=== PATIENT | female | born 1990 | race Caucasian/White ===

== ENCOUNTER 2017-01-08 19:02 | Emergency (ER) | payer OTHER ==
[~2017-01-08] VITALS: Ht 170.2 cm; Wt 74.4 kg
[~2017-01-08 19:02] MED LIST: /MOM400 PO; ACET50TA PO; ANUS2.5C2 TOP; COLA50CA3 PO; IBUP600T26 PO
[2017-01-08] MEDS ORDERED: ONDANSETRON 4 MG ORAL DISINTEGRATING TAB (S0181) PO ONE (21:15)
[2017-01-08] MEDS ORDERED: KETOROLAC 30 MG/ML VIAL (J1885) IM ONE (21:15)
[2017-01-08] MEDS ORDERED: AUGM875T27 PO (21:45)
[2017-01-08] MEDS ORDERED: AUGMENTIN 875 MG TAB PO ONE (21:45)
[2017-01-08 21:48] VITALS: BP 125/75
== END 2017-01-08 22:06 | disposition home or self-care (01) ==
LOC: M ED 20:01
DX: J01.90 Acute sinusitis, unspecified (principal); H65.02 Acute serous otitis media, left ear; R56.9 Unspecified convulsions; J45.909 Unspecified asthma, uncomplicated
CPT/HCPCS: 81025; 87804; 96372; 99283; J1885

== ENCOUNTER → 2017-03-11 | Outpatient (CLI) | payer OTHER ==
[~2017-03-11] MED LIST changes: +AUGM875T27 PO
--- NOTE | 2017-03-11 15:32 | REP ---
Clinical: Left lower quadrant pelvic pain . Technique: Transabdominal pelvic ultrasound followed by transvaginal examination for better evaluation of the endometrium and adnexa with color Doppler evaluation of the ovaries. Findings: Bladder is unremarkable and measures 11.1 x 10.0 x 6.6 cm . Normal anteverted uterus measures 10.2 x 3.2 x 6.0 cm . The endometrial complex measures 2.9 mm thickness. No discrete uterine or endometrial abnormalities are appreciated. Bilateral ovaries are normal in appearance and vascularity without evidence for torsion. Right ovary measures 2.9 x 2.2 x 2.6 cm ; R I = 0.5 a . Left ovary measures 2.3 x 2.4 x 2.7 cm ; R I = 0.65 . No pelvic fluid or adnexal mass lesions . Impression: 1. normal pelvic ultrasound Signed by Vernon Hays MD 03/11/2017 03:19 P
== END ==
LOC: M RAD 14:48
PROVIDERS: ATTEND Nurse Practitioner Women's Health
DX: R10.2 Pelvic and perineal pain (principal)

== ENCOUNTER → 2017-05-14 | Outpatient (REF) | payer OTHER ==
[~2017-05-14] MED LIST changes: -AUGM875T27 PO; +AUGM875T28 PO
== END ==
LOC: M LAB REF 16:41
PROVIDERS: ATTEND Advanced Practice Midwife
DX: O36.80X0 Pregnancy with inconclusive fetal viability, not applicable or unspecified (principal); Z3A.00 Weeks of gestation of pregnancy not specified

== ENCOUNTER → 2017-06-11 | Outpatient (CLI) | payer MEDICAID, OTHER, SELFPAY ==
[~2017-06-11] MED LIST changes: +E-Z-GAS II EFFERVESCENT PACKET (SODIUM BICARB./CITRIC ACID/SIMETHICONE) As Ordered ONE; +E-Z-HD 98% w/w 340GM SUSP BTL As Ordered ONE; +E-Z-PAQUE 96% w/w SUSP 176GM BTL As Ordered ONE
--- NOTE | 2017-06-11 18:07 | REP ---
UPPER GI WITH SMALL BOWEL FOLLOW THROUGH: The procedure was performed by EHSAN Coyle under the direct supervision of Dr. Sher. All imaging was reviewed with him prior to dictation. The patient was able to ingest liquid barium and air in a quantity sufficient to produce a double contrast examination. The oral and pharyngeal stages of deglutition appeared unremarkable. Esophageal transport was prompt and efficient. There was no evidence of esophagitis, stricture, mucosal ring or hiatal hernia. Gastroesophageal reflux was not observed on this examination. The stomach pan were normally outlined. The rugal folds were smooth and regular. There was no gastritis, neoplasm or ulcerative disease. The duodenal pan were normally outlined. There was no duodenitis, pancreatitis, peptic ulcer disease or neoplasm. The visualized portion of the proximal small bowel was normal in course and caliber. Additional liquid barium was given at the end of the examination in order to perform a small bowel follow through. During fluoroscopy gentle palpation of the small bowel loops showed them to be freely movable and pliable. Without evidence of a fixed or angulated loop. The small bowel mucosal pattern was normal in course and caliber. There was no transition to suggest a partial small bowel obstruction. Spot filming of the terminal ileum showed it to be within normal limits. Small bowel transit time was approximately 30 minutes. IMPRESSION: Unremarkable double contrast upper GI examination and small bowel follow through. Fluoroscopy time was 4 minutes and 11 seconds. Reviewed by EHSAN Frederick 06/12/2017 08:14 AEdited and Signed by Eliezer Sher MD 06/12/2017 05:03 P
== END ==
LOC: M RAD 09:42
PROVIDERS: ATTEND Nurse Practitioner Family
DX: K59.00 Constipation, unspecified (principal); R14.0 Abdominal distension (gaseous); R10.9 Unspecified abdominal pain; R12 Heartburn

== ENCOUNTER → 2017-11-13 | Outpatient (REF) | payer OTHER ==
[2017-11-13 17:59] LABS: HEMATOCRIT 43.1 % (36.0-47.0); HEMOGLOBIN 14.2 g/dl (12.0-16.0); MEAN CORPUSCULAR HEMOGLOBIN 29.6 pg (27.0-33.0); MEAN CORPUSCULAR HGB CONC 32.9 g/dl (32.0-36.5); MEAN CORPUSCULAR VOLUME 89.8 fl (80.0-96.0); PLATELET COUNT, AUTOMATED 275 10^3/uL (150-450); RED CELL DISTRIBUTION WIDTH 12.2 % (11.5-14.5); WHITE BLOOD COUNT 10.5 10^3/uL (4.0-10.0)
[2017-11-13 18:45] LABS: HCG, SERUM QUANTITATIVE 4820 MIU/ML
[2017-11-13 21:08] LABS: CHLAMYDIA DNA AMPLIFICATION NEGATIVE (NEGATIVE); GC DNA AMPLIFICATION NEGATIVE (NEGATIVE)
[2017-11-15 14:53] LABS: RUBELLA IgG QUALITATIVE IMMUNE (IMMUNE)
[2017-11-15 15:01] LABS: HBsAg Prenatal NEGATIVE (NEGATIVE)
[2017-11-15 15:21] LABS: HEPATITIS C VIRUS ABY INDEX 0.1 INDEX (<0.8)
[2017-11-15 15:25] LABS: HIV 1&2 SCREEN CENTAUR NEGATIVE (NEGATIVE)
== END ==
LOC: M LAB REF 16:52
DX: Z32.01 Encounter for pregnancy test, result positive (principal); Z36.89 Encounter for other specified antenatal screening

== ENCOUNTER → 2017-12-11 | Outpatient (REF) | payer OTHER | LOC: M LAB REF 13:22 | DX: Z34.81 Encounter for supervision of other normal pregnancy, first trimester (principal) ==

== ENCOUNTER → 2018-01-08 | Outpatient (REF) | payer OTHER | LOC: M LAB REF 13:02 | DX: Z34.82 Encounter for supervision of other normal pregnancy, second trimester (principal); Z3A.00 Weeks of gestation of pregnancy not specified ==

== ENCOUNTER → 2018-04-25 | Outpatient (CLI) | payer OTHER ==
[2018-04-25 12:56] LABS: MEAN CORPUSCULAR HGB CONC 33.3 g/dl (32.0-36.5); PLATELET COUNT, AUTOMATED 316 10^3/uL (150-450); RED BLOOD COUNT 3.45 10^6/uL (4.00-5.40); RED CELL DISTRIBUTION WIDTH 12.1 % (11.5-14.5); WHITE BLOOD COUNT 11.9 10^3/uL (4.0-10.0)
[2018-04-25 13:24] LABS: GLUCOSE CHALLENGE TEST 1 HOUR 145 MG/DL (LESS THAN 140)
== END ==
LOC: M LAB 10:53
DX: Z34.82 Encounter for supervision of other normal pregnancy, second trimester (principal); Z3A.00 Weeks of gestation of pregnancy not specified
CPT/HCPCS: 82950

== ENCOUNTER → 2018-05-01 | Outpatient (CLI) | payer OTHER ==
[2018-05-01 10:00] LABS: GLUCOSE, FASTING 86 MG/DL (LESS THAN 95)
[2018-05-01 10:42] LABS: 1 HR GLUCOSE 156 MG/DL (LESS THAN 180)
[2018-05-01 11:12] LABS: 2 HR GLUCOSE 113 MG/DL (LESS THAN 155)
[2018-05-01 11:58] LABS: 3 HR GLUCOSE 83 MG/DL (LESS THAN 140)
== END ==
LOC: M LAB 08:04
DX: Z34.83 Encounter for supervision of other normal pregnancy, third trimester (principal); Z3A.00 Weeks of gestation of pregnancy not specified
CPT/HCPCS: 82951

== ENCOUNTER → 2018-06-16 | Outpatient (REF) | payer OTHER | LOC: M LAB REF 13:18 | DX: Z34.83 Encounter for supervision of other normal pregnancy, third trimester (principal) ==

== ENCOUNTER 2018-07-03 12:11 | Inpatient (IN) | payer OTHER ==
[2018-07-03 13:25] LABS: HEMATOCRIT 31.8 % (36.0-47.0); HEMOGLOBIN 10.5 g/dl (12.0-15.5); MEAN CORPUSCULAR HEMOGLOBIN 28.2 pg (27.0-33.0); MEAN CORPUSCULAR VOLUME 85.3 fl (80.0-96.0); PLATELET COUNT, AUTOMATED 194 10^3/uL (150-450); RED BLOOD COUNT 3.73 10^6/uL (4.00-5.40); RED CELL DISTRIBUTION WIDTH 13.7 % (11.5-14.5); WHITE BLOOD COUNT 9.7 10^3/uL (4.0-10.0)
[2018-07-03] MEDS: OXYTOCIN DRIP 30 UNITS in APPROPRIATE DILUENT 1 EA IV (14:11)
[2018-07-03] MEDS: LR 1,000 ML IV ×2 (14:12→21:33)
[2018-07-03 14:43] LABS: TOTAL PROTEIN,RANDOM URINE 13.6 MG/DL (0.0-12.0)
[2018-07-03 15:04] LABS: ALT/SGPT 13 U/L (12-78); AST/SGOT 14 U/L (7-37); BILIRUBIN,TOTAL 0.4 MG/DL (0.2-1.0); GLOMERULAR FILTRATION RATE > 60.0 (>60); LDH LACTATE DEHYDROGENASE 177 U/L (84-246); URIC ACID 6.5 MG/DL (2.6-6.0)
[2018-07-03] MEDS ORDERED: FENTANYL 2MCG/ML ROPIVACAINE 0.2% IN 0.9% NACL 200ML IVBAG As Ordered (23:52)
[2018-07-04] MEDS ORDERED: EPIDURAL/PCA KEYS XX (00:12)
[2018-07-04] MEDS ORDERED: REFRIGERATOR IV KEYS XX (00:12)
[2018-07-04] MEDS ORDERED: EPIDURAL COMMENT XX (00:12)
[2018-07-04] MEDS ORDERED: NALOXONE INJ 0.4 MG/1 ML VIAL (J2310) IV (00:12)
[2018-07-04] MEDS ORDERED: LACTATED RINGER'S 1000 ML IV (00:12)
[2018-07-04] MEDS ORDERED: FENTANYL/ROPIVACAINE/NACL BAG 200 ML EPIDURAL (00:12)
[2018-07-04] MEDS ORDERED: ONDANSETRON 4MG/2ML VIAL (J2405) IV (00:12)
[2018-07-04] MEDS ORDERED: ePHEDrine SULFATE 25 MG/5 ML(5MG/ML) SYRINGE IV (00:12)
[2018-07-04] MEDS ORDERED: diphenhydrAMINE INJ 50MG/ML VIAL (J1200) IV (00:12)
[2018-07-04] MEDS: OXYTOCIN DRIP 30 UNITS in APPROPRIATE DILUENT 1 EA IV (04:55)
[2018-07-04] MEDS ORDERED: DOCUSATE SODIUM 100 MG CAP PO (05:00)
[2018-07-04] MEDS ORDERED: DIBUCAINE 1% OINTMENT 30GM TOP (05:00)
[2018-07-04] MEDS ORDERED: METHYLERGONOVINE MALEATE 0.2 MG TAB PO (05:00)
[2018-07-04] MEDS ORDERED: ANUSOL HC CREAM 30GM TOP (05:00)
[2018-07-04] MEDS: IBUPROFEN 800 MG TAB PO ×3 (05:42→21:39)
[2018-07-04 08:16] LABS: HEMATOCRIT 27.7 % (36.0-47.0); HEMOGLOBIN 9.2 g/dl (12.0-15.5); MEAN CORPUSCULAR HGB CONC 33.2 g/dl (32.0-36.5); MEAN CORPUSCULAR VOLUME 84.2 fl (80.0-96.0); PLATELET COUNT, AUTOMATED 173 10^3/uL (150-450); RED BLOOD COUNT 3.29 10^6/uL (4.00-5.40); RED CELL DISTRIBUTION WIDTH 13.6 % (11.5-14.5); WHITE BLOOD COUNT 12.6 10^3/uL (4.0-10.0)
[2018-07-04 08:38] LABS: ALT/SGPT 10 U/L (12-78); AST/SGOT 12 U/L (7-37); BILIRUBIN,TOTAL 0.3 MG/DL (0.2-1.0); GLOMERULAR FILTRATION RATE > 60.0 (>60); LDH LACTATE DEHYDROGENASE 174 U/L (84-246)
[2018-07-04] MEDS: ACETAMINOPHEN 500 MG TAB PO ×2 (08:38→19:16)
[2018-07-04] MEDS: PRENATAL VITAMINS CHEWABLE TABLET PO (08:38)
[2018-07-04] MEDS: MEASLES,MUMPS,RUBELLA VACCINE INJ (MMR-II) (90707) SC (10:11)
[2018-07-04] MEDS: RHOGAM 300 MCG (1500 IU) INJ (J2790) IM (10:11)
[2018-07-05] MEDS: PERCOCET 5MG/325MG TAB PO ×3 (02:00→21:36)
[2018-07-05] MEDS: IBUPROFEN 800 MG TAB PO ×3 (06:25→22:20)
[2018-07-05] MEDS: PRENATAL VITAMINS CHEWABLE TABLET PO (08:13)
[2018-07-05] MEDS: LR 1,000 ML IV (21:30)
[2018-07-05 21:36] LABS: MEAN CORPUSCULAR HEMOGLOBIN 27.9 pg (27.0-33.0); MEAN CORPUSCULAR VOLUME 87.1 fl (80.0-96.0); PLATELET COUNT, AUTOMATED 149 10^3/uL (150-450); RED BLOOD COUNT 2.87 10^6/uL (4.00-5.40); RED CELL DISTRIBUTION WIDTH 13.9 % (11.5-14.5); WHITE BLOOD COUNT 13.1 10^3/uL (4.0-10.0)
[2018-07-05 21:50] LABS: KETONE, URINE AUTO RFX NEGATIVE (NEGATIVE); LEUKOCYTE ESTERASE UR AUTO RFX TRACE (NEGATIVE); MUCUS, URINE RFX SMALL (NEGATIVE); NITRITE, URINE AUTO RFX NEGATIVE (NEGATIVE); RBC, URINE AUTO RFX 5 /HPF (0-3); SPECIFIC GRAVITY UR AUTO RFX 1.006 (1.002-1.035); SQUAM EPITHELIAL CELL UR AURFX 0 /HPF (0-6); WBC, URINE AUTO RFX 13 /HPF (0-3)
[2018-07-05] MEDS ORDERED: ACETAMINOPHEN 500 MG TAB As Ordered (22:18)
[2018-07-05] MEDS: ACETAMINOPHEN 500 MG TAB PO (22:20)
[2018-07-05] MEDS: cefTRIAXone SOD 1 GM in D5W MINI-BAG PLUS 50 ML IV (22:49)
[2018-07-06] MEDS: IBUPROFEN 800 MG TAB PO ×3 (06:02→22:54)
[2018-07-06] MEDS: LR 1,000 ML IV (07:16)
[2018-07-06] MEDS: PRENATAL VITAMINS CHEWABLE TABLET PO (09:04)
[2018-07-06] MEDS: ACETAMINOPHEN 500 MG TAB PO ×3 (09:05→21:07)
[2018-07-06] MEDS: cefTRIAXone SOD 1 GM in D5W MINI-BAG PLUS 50 ML IV (22:53)
[2018-07-07] MEDS: ACETAMINOPHEN 500 MG TAB PO (03:54)
[2018-07-07 06:37] LABS: HEMATOCRIT 22.6 % (36.0-47.0); HEMOGLOBIN 7.2 g/dl (12.0-15.5); MEAN CORPUSCULAR HEMOGLOBIN 28.2 pg (27.0-33.0); MEAN CORPUSCULAR HGB CONC 31.9 g/dl (32.0-36.5); MEAN CORPUSCULAR VOLUME 88.6 fl (80.0-96.0); PLATELET COUNT, AUTOMATED 147 10^3/uL (150-450); RED BLOOD COUNT 2.55 10^6/uL (4.00-5.40); RED CELL DISTRIBUTION WIDTH 14.4 % (11.5-14.5); WHITE BLOOD COUNT 9.6 10^3/uL (4.0-10.0)
[2018-07-07] MEDS: IBUPROFEN 800 MG TAB PO (06:49)
[2018-07-07] MEDS: PRENATAL VITAMINS CHEWABLE TABLET PO (08:08)
== END 2018-07-07 11:30 | disposition home or self-care (01) | DRG 560 ==
LOC: M LDI 12:11 → M OBS 07-04 09:20
PROC: 3E033VJ Introduction of Other Hormone into Peripheral Vein, Percutaneous Approach (ICD-10-PCS; 2018-07-03)
PROC: 10E0XZZ Delivery of Products of Conception, External Approach (ICD-10-PCS; principal; 2018-07-04)
DX: O14.94 Unspecified pre-eclampsia, complicating childbirth (principal); Z37.0 Single live birth; Z3A.38 38 weeks gestation of pregnancy; D64.9 Anemia, unspecified; O99.02 Anemia complicating childbirth; O69.82X0 Labor and delivery complicated by other cord entanglement, without compression, not applicable or unspecified; O86.20 Urinary tract infection following delivery, unspecified

== ENCOUNTER 2018-07-09 22:06 | Emergency (ER) | payer OTHER ==
[2018-07-09 23:06] LABS: BASO % 0.4 % (0.0-1.0); EOS # 0.3 10^3/uL (0.0-0.50); EOS % 3.2 % (0.0-3.0); HEMATOCRIT 24.6 % (36.0-47.0); HEMOGLOBIN 7.9 g/dl (12.0-15.5); IMMATURE GRANULOCYTE % 0.5 % (0-3.0); LYMPH % 24.9 % (24.0-44.0); MEAN CORPUSCULAR HEMOGLOBIN 27.8 pg (27.0-33.0); MEAN CORPUSCULAR HGB CONC 32.1 g/dl (32.0-36.5); MEAN CORPUSCULAR VOLUME 86.6 fl (80.0-96.0); MONO # 0.5 10^3/uL (0.0-0.8); MONO % 6.4 % (0.0-5.0); NEUTROPHILS # 5.1 10^3/uL (1.8-7.7); NEUTROPHILS % 64.6 % (36.0-66.0); PLATELET COUNT, AUTOMATED 279 10^3/uL (150-450); RED BLOOD COUNT 2.84 10^6/uL (4.00-5.40); RED CELL DISTRIBUTION WIDTH 13.8 % (11.5-14.5); WHITE BLOOD COUNT 7.8 10^3/uL (4.0-10.0)
[2018-07-09] MEDS: METOCLOPRAMIDE INJ 10MG/2ML VIAL (J2765) IV (23:30)
[2018-07-09] MEDS: KETOROLAC 30 MG/ML VIAL (J1885) IV (23:30)
[2018-07-09] MEDS: diphenhydrAMINE INJ 50MG/ML VIAL (J1200) IV (23:30)
[2018-07-09] MEDS: NS 1,000 ML IV (23:30)
[2018-07-09 23:38] LABS: ALBUMIN 2.6 GM/DL (3.2-5.2); ALBUMIN/GLOBULIN RATIO 0.84 (1.00-1.93); ALKALINE PHOSPHATASE 95 U/L (45-117); ALT/SGPT 35 U/L (12-78); ANION GAP 11 MEQ/L (8-16); AST/SGOT 27 U/L (7-37); BILIRUBIN,DIRECT < 0.1 MG/DL (0.0-0.2); BILIRUBIN,TOTAL 0.2 MG/DL (0.2-1.0); BLOOD UREA NITROGEN 17 MG/DL (7-18); CALCIUM LEVEL 8.1 MG/DL (8.5-10.1); CARBON DIOXIDE LEVEL 23 MEQ/L (21-32); CHLORIDE LEVEL 111 MEQ/L (98-107); CREATININE FOR GFR 0.88 MG/DL (0.55-1.30); GLOMERULAR FILTRATION RATE > 60.0 (>60); GLUCOSE, FASTING 98 MG/DL (70-100); POTASSIUM SERUM 3.7 MEQ/L (3.5-5.1); SODIUM LEVEL 145 MEQ/L (136-145); TOTAL PROTEIN 5.7 GM/DL (6.4-8.2)
[2018-07-10 00:35] LABS: KETONE, URINE AUTO RFX NEGATIVE (NEGATIVE); LEUKOCYTE ESTERASE UR AUTO RFX NEGATIVE (NEGATIVE); NITRITE, URINE AUTO RFX NEGATIVE (NEGATIVE); RBC, URINE AUTO RFX 1 /HPF (0-3); SPECIFIC GRAVITY UR AUTO RFX 1.006 (1.002-1.035); SQUAM EPITHELIAL CELL UR AURFX 0 /HPF (0-6); WBC, URINE AUTO RFX 2 /HPF (0-3)
[2018-07-10 02:34] LABS: LDH LACTATE DEHYDROGENASE 244 U/L (84-246)
== END 2018-07-10 03:05 | disposition home or self-care (01) ==
LOC: M ED 07-10 03:05
DX: R51 Headache (principal); Z72.0 Tobacco use; Z79.899 Other long term (current) drug therapy
CPT/HCPCS: J1200

== ENCOUNTER 2018-07-11 14:05 | Inpatient (IN) | payer OTHER ==
[2018-07-11 15:38] LABS: BASO % 0.5 % (0.0-1.0); EOS # 0.2 10^3/uL (0.0-0.50); EOS % 2.7 % (0.0-3.0); HEMATOCRIT 28.5 % (36.0-47.0); HEMOGLOBIN 8.9 g/dl (12.0-15.5); IMMATURE GRANULOCYTE % 2.5 % (0-3.0); LYMPH # 2.1 10^3/uL (1.5-6.5); LYMPH % 27.4 % (24.0-44.0); MEAN CORPUSCULAR HEMOGLOBIN 27.4 pg (27.0-33.0); MEAN CORPUSCULAR HGB CONC 31.2 g/dl (32.0-36.5); MEAN CORPUSCULAR VOLUME 87.7 fl (80.0-96.0); MONO # 0.4 10^3/uL (0.0-0.8); MONO % 5.4 % (0.0-5.0); NEUTROPHILS # 4.6 10^3/uL (1.8-7.7); NEUTROPHILS % 61.5 % (36.0-66.0); PLATELET COUNT, AUTOMATED 332 10^3/uL (150-450); RED BLOOD COUNT 3.25 10^6/uL (4.00-5.40); RED CELL DISTRIBUTION WIDTH 13.7 % (11.5-14.5); WHITE BLOOD COUNT 7.5 10^3/uL (4.0-10.0)
[2018-07-11 15:42] LABS: PROTHROMBIN TIME 13.3 SECONDS (12.1-14.4)
[2018-07-11 15:43] LABS: PARTIAL THROMBOPLASTIN TIME 31.2 SECONDS (25.4-37.6)
[2018-07-11 15:50] LABS: KETONE, URINE AUTO RFX NEGATIVE (NEGATIVE); LEUKOCYTE ESTERASE UR AUTO RFX 1+ (NEGATIVE); MUCUS, URINE RFX SMALL (NEGATIVE); NITRITE, URINE AUTO RFX NEGATIVE (NEGATIVE); RBC, URINE AUTO RFX 3 /HPF (0-3); SPECIFIC GRAVITY UR AUTO RFX 1.006 (1.002-1.035); SQUAM EPITHELIAL CELL UR AURFX 3 /HPF (0-6); WBC, URINE AUTO RFX 6 /HPF (0-3)
[2018-07-11 15:51] LABS: ALBUMIN 2.9 GM/DL (3.2-5.2); ALBUMIN/GLOBULIN RATIO 0.76 (1.00-1.93); ALKALINE PHOSPHATASE 100 U/L (45-117); ALT/SGPT 48 U/L (12-78); ANION GAP 7 MEQ/L (8-16); AST/SGOT 26 U/L (7-37); BILIRUBIN,DIRECT < 0.1 MG/DL (0.0-0.2); BILIRUBIN,TOTAL 0.2 MG/DL (0.2-1.0); BLOOD UREA NITROGEN 14 MG/DL (7-18); C REACTIVE PROTEIN QUANTITATIV 1.88 MG/DL (0.00-0.30); CALCIUM LEVEL 8.5 MG/DL (8.5-10.1); CARBON DIOXIDE LEVEL 24 MEQ/L (21-32); CHLORIDE LEVEL 110 MEQ/L (98-107); CREATININE FOR GFR 0.92 MG/DL (0.55-1.30); GLOMERULAR FILTRATION RATE > 60.0 (>60); GLUCOSE, FASTING 86 MG/DL (70-100); POTASSIUM SERUM 3.9 MEQ/L (3.5-5.1); SODIUM LEVEL 141 MEQ/L (136-145); TOTAL PROTEIN 6.7 GM/DL (6.4-8.2)
[2018-07-11 16:07] LABS: ERYTHROCYTE SEDIMENTATION RATE 61 mm/hr (0-20)
[2018-07-11] MEDS ORDERED: ISOVUE-370 76% 100ML VIAL (Q9967) As Ordered (16:18)
[2018-07-11 16:27] LABS: LACTIC ACID SEPSIS PROTOCOL 0.8 MMOL/L (0.4-2.0)
[2018-07-11 16:37] LABS: CPK CREATINE PHOSPHOKINASE 81 U/L (26-192); MB/CK RELATIVE INDEX 1.36 (< OR =4); TROPONIN I 0.02 NG/ML (< 0.10)
[2018-07-11] MEDS: ENALAPRIL MALEATE 5 MG TAB PO (20:15)
[2018-07-11 20:50] LABS: NT-PRO BNP 963 PG/ML (<125)
[2018-07-11] MEDS: FUROSEMIDE 20 MG/2 ML VIAL (J1940) IV (22:06)
[2018-07-11] MEDS: **hydrALAZINE HCL** 25 MG TAB PO (22:07)
[2018-07-12 00:01] LABS: TROPONIN I < 0.02 NG/ML (< 0.10)
[2018-07-12] MEDS: **hydrALAZINE HCL** 25 MG TAB PO (06:00)
[2018-07-12 06:30] LABS: TROPONIN I < 0.02 NG/ML (< 0.10)
[2018-07-12 08:55] LABS: BASO % 0.4 % (0.0-1.0); EOS # 0.2 10^3/uL (0.0-0.50); EOS % 2.8 % (0.0-3.0); HEMATOCRIT 27.7 % (36.0-47.0); HEMOGLOBIN 8.9 g/dl (12.0-15.5); IMMATURE GRANULOCYTE % 1.4 % (0-3.0); LYMPH # 2.1 10^3/uL (1.5-6.5); LYMPH % 27.4 % (24.0-44.0); MEAN CORPUSCULAR HEMOGLOBIN 27.6 pg (27.0-33.0); MEAN CORPUSCULAR HGB CONC 32.1 g/dl (32.0-36.5); MEAN CORPUSCULAR VOLUME 85.8 fl (80.0-96.0); MONO # 0.5 10^3/uL (0.0-0.8); MONO % 6.3 % (0.0-5.0); NEUTROPHILS # 4.8 10^3/uL (1.8-7.7); NEUTROPHILS % 61.7 % (36.0-66.0); PLATELET COUNT, AUTOMATED 374 10^3/uL (150-450); RED BLOOD COUNT 3.23 10^6/uL (4.00-5.40); RED CELL DISTRIBUTION WIDTH 13.6 % (11.5-14.5); WHITE BLOOD COUNT 7.8 10^3/uL (4.0-10.0)
[2018-07-12] MEDS ORDERED: CEPHALEXIN 250 MG CAP PO (09:00)
[2018-07-12 09:14] LABS: ALBUMIN 2.7 GM/DL (3.2-5.2); ALBUMIN/GLOBULIN RATIO 0.73 (1.00-1.93); ALKALINE PHOSPHATASE 99 U/L (45-117); ALT/SGPT 42 U/L (12-78); ANION GAP 9 MEQ/L (8-16); AST/SGOT 23 U/L (7-37); BILIRUBIN,TOTAL 0.2 MG/DL (0.2-1.0); BLOOD UREA NITROGEN 15 MG/DL (7-18); CALCIUM LEVEL 8.2 MG/DL (8.5-10.1); CARBON DIOXIDE LEVEL 27 MEQ/L (21-32); CHLORIDE LEVEL 107 MEQ/L (98-107); GLOMERULAR FILTRATION RATE > 60.0 (>60); GLUCOSE, FASTING 80 MG/DL (70-100); MAGNESIUM LEVEL 2.1 MG/DL (1.8-2.4); POTASSIUM SERUM 3.7 MEQ/L (3.5-5.1); SODIUM LEVEL 143 MEQ/L (136-145); TOTAL PROTEIN 6.4 GM/DL (6.4-8.2)
[2018-07-12] MEDS: **hydrALAZINE** 50 MG TAB PO ×2 (14:21→22:35)
[2018-07-12] MEDS: hydrALAZINE INJ 20 MG/ML VIAL IV (19:40)
[2018-07-12] MEDS: ACETAMINOPHEN TAB 650MG DOSE (2X325MG) PO (19:43)
[2018-07-13] MEDS: **hydrALAZINE** 50 MG TAB PO ×3 (05:37→21:40)
[2018-07-13 05:38] LABS: BASO % 0.4 % (0.0-1.0); EOS # 0.2 10^3/uL (0.0-0.50); EOS % 3.3 % (0.0-3.0); HEMATOCRIT 30.7 % (36.0-47.0); IMMATURE GRANULOCYTE % 0.9 % (0-3.0); MEAN CORPUSCULAR HEMOGLOBIN 27.7 pg (27.0-33.0); MEAN CORPUSCULAR HGB CONC 32.6 g/dl (32.0-36.5); MONO # 0.5 10^3/uL (0.0-0.8); MONO % 7.9 % (0.0-5.0); NEUTROPHILS # 3.9 10^3/uL (1.8-7.7); NEUTROPHILS % 58.5 % (36.0-66.0); PLATELET COUNT, AUTOMATED 440 10^3/uL (150-450); RED BLOOD COUNT 3.61 10^6/uL (4.00-5.40); RED CELL DISTRIBUTION WIDTH 13.4 % (11.5-14.5); WHITE BLOOD COUNT 6.7 10^3/uL (4.0-10.0)
[2018-07-13 06:29] LABS: ALBUMIN 2.9 GM/DL (3.2-5.2); ALBUMIN/GLOBULIN RATIO 0.85 (1.00-1.93); ALKALINE PHOSPHATASE 103 U/L (45-117); ALT/SGPT 37 U/L (12-78); ANION GAP 9 MEQ/L (8-16); AST/SGOT 17 U/L (7-37); BILIRUBIN,TOTAL 0.3 MG/DL (0.2-1.0); BLOOD UREA NITROGEN 16 MG/DL (7-18); CALCIUM LEVEL 8.4 MG/DL (8.5-10.1); CARBON DIOXIDE LEVEL 25 MEQ/L (21-32); CHLORIDE LEVEL 109 MEQ/L (98-107); CREATININE FOR GFR 1.11 MG/DL (0.55-1.30); GLOMERULAR FILTRATION RATE > 60.0 (>60); GLUCOSE, FASTING 96 MG/DL (70-100); MAGNESIUM LEVEL 2.4 MG/DL (1.8-2.4); POTASSIUM SERUM 3.7 MEQ/L (3.5-5.1); SODIUM LEVEL 143 MEQ/L (136-145); TOTAL PROTEIN 6.3 GM/DL (6.4-8.2)
[2018-07-13] MEDS: ACETAMINOPHEN TAB 650MG DOSE (2X325MG) PO ×2 (08:54→17:41)
[2018-07-14 05:30] LABS: BASO % 0.5 % (0.0-1.0); EOS # 0.3 10^3/uL (0.0-0.50); EOS % 4.2 % (0.0-3.0); HEMATOCRIT 33.8 % (36.0-47.0); HEMOGLOBIN 10.4 g/dl (12.0-15.5); IMMATURE GRANULOCYTE % 0.9 % (0-3.0); LYMPH # 2.4 10^3/uL (1.5-6.5); LYMPH % 30.9 % (24.0-44.0); MEAN CORPUSCULAR HEMOGLOBIN 27.2 pg (27.0-33.0); MEAN CORPUSCULAR HGB CONC 30.8 g/dl (32.0-36.5); MEAN CORPUSCULAR VOLUME 88.3 fl (80.0-96.0); MONO # 0.5 10^3/uL (0.0-0.8); MONO % 5.7 % (0.0-5.0); NEUTROPHILS # 4.5 10^3/uL (1.8-7.7); NEUTROPHILS % 57.8 % (36.0-66.0); PLATELET COUNT, AUTOMATED 427 10^3/uL (150-450); RED BLOOD COUNT 3.83 10^6/uL (4.00-5.40); RED CELL DISTRIBUTION WIDTH 13.8 % (11.5-14.5); WHITE BLOOD COUNT 7.8 10^3/uL (4.0-10.0)
[2018-07-14 05:50] LABS: ALBUMIN 2.9 GM/DL (3.2-5.2); ALBUMIN/GLOBULIN RATIO 0.73 (1.00-1.93); ALKALINE PHOSPHATASE 92 U/L (45-117); ALT/SGPT 30 U/L (12-78); ANION GAP 11 MEQ/L (8-16); AST/SGOT 15 U/L (7-37); BILIRUBIN,TOTAL 0.2 MG/DL (0.2-1.0); BLOOD UREA NITROGEN 15 MG/DL (7-18); CALCIUM LEVEL 8.6 MG/DL (8.5-10.1); CARBON DIOXIDE LEVEL 25 MEQ/L (21-32); CHLORIDE LEVEL 109 MEQ/L (98-107); CREATININE FOR GFR 1.08 MG/DL (0.55-1.30); GLOMERULAR FILTRATION RATE > 60.0 (>60); GLUCOSE, FASTING 79 MG/DL (70-100); MAGNESIUM LEVEL 2.3 MG/DL (1.8-2.4); POTASSIUM SERUM 3.9 MEQ/L (3.5-5.1); SODIUM LEVEL 145 MEQ/L (136-145); TOTAL PROTEIN 6.9 GM/DL (6.4-8.2)
[2018-07-14] MEDS: **hydrALAZINE** 50 MG TAB PO ×2 (06:00→13:59)
[2018-07-14] MEDS ORDERED: SLF 3 ML SYR IV (11:00)
[2018-07-14] MEDS: SLF 3 ML SYR IV (13:59)
== END 2018-07-14 17:00 | disposition home or self-care (01) | DRG 561 ==
LOC: M ED 14:05 → M ED INP 19:00 → M PCU 21:37
DX: O14.15 Severe pre-eclampsia, complicating the puerperium (principal); R01.1 Cardiac murmur, unspecified

== ENCOUNTER → 2020-04-21 | Outpatient (CLI) | payer OTHER ==
[~2020-04-21] MED LIST changes: -/MOM400 PO; -ACET50TA PO; +ADDE1TAB14 PO; +AMLO2.5C4 PO; +CEPH250T; +CEPH250T PO; -E-Z-GAS II EFFERVESCENT PACKET (SODIUM BICARB./CITRIC ACID/SIMETHICONE) As Ordered ONE; -E-Z-HD 98% w/w 340GM SUSP BTL As Ordered ONE; -E-Z-PAQUE 96% w/w SUSP 176GM BTL As Ordered ONE; +FERR325T3 PO; +FERR32TA; +IBUP80TA PO; +KEFL250C11 PO; +MAPA500T17 PO; +MAPA500T2 PO; +MILK10SU PO; +PERCOCET PO; +PHEN-501 PO; +PRENTAB9 PO; +TYLE325T5 PO
--- NOTE | 2020-04-21 11:37 | REP ---
URINARY TRACT SONOGRAPHY: HISTORY: Flank pain. Acute gross hematuria. FINDINGS: Scanning through the level urinary bladder shows no abnormality. Emptying ureteral jets are confirmed emanating from both ureters on color Doppler interrogation of bladder lumen. There is no evidence of hydronephrosis on either side. Renal cortical echogenicity pattern is normal and renal contours are smooth. Renal pyramids are quite hyperechoic however without shadowing. Question medullary sponge kidney configuration versus dehydration. There is a punctate 3 mm echogenic focus in the upper pole cortex on the left question calcification. Right renal dimensions are 9.8 x 5.1 x 4.0 cm. Left kidney measures 10.8 x 5.9 x 5.9 cm. IMPRESSION: Echogenic renal medullary tissue question medullary sponge kidney. Small focal calcification left upper pole. No hydronephrosis mass or cyst. Otherwise negative. Electronically Signed by Dereje Cunningham MD 04/21/2020 11:50 A
== END ==
LOC: M RAD 10:52
PROVIDERS: ATTEND Advanced Practice Midwife
DX: R10.9 Unspecified abdominal pain (principal); R31.0 Gross hematuria; N28.89 Other specified disorders of kidney and ureter

== ENCOUNTER → 2020-08-19 | Outpatient (REF) | payer OTHER ==
[~2020-08-19] MED LIST changes: -PERCOCET PO; -PHEN-501 PO
== END ==
LOC: M PLALAB 15:08
PROVIDERS: ATTEND Obstetrics & Gynecology
DX: N93.9 Abnormal uterine and vaginal bleeding, unspecified (principal)

== ENCOUNTER → 2020-08-28 | Outpatient (CLI) | payer OTHER ==
[~2020-08-28] MED LIST changes: +PERCOCET PO; +PHEN-501 PO
== END ==
LOC: M LABSMTC 09:23
PROVIDERS: ATTEND Anesthesiology
DX: Z01.812 Encounter for preprocedural laboratory examination (principal); Z20.828 Contact with and (suspected) exposure to other viral communicable diseases
CPT/HCPCS: C9803; U0003

== ENCOUNTER → 2020-08-30 | Outpatient (CLI) | payer OTHER ==
--- NOTE | 2020-08-30 09:47 | REP ---
INDICATION: N93.9 ABNORMAL UTERINE BLEEDING. COMPARISON: Comparison pelvic sonography July 11, 2018.. TECHNIQUE: Transabdominal and transvaginal scanning were performed. FINDINGS: Uterine dimensions are normal at 8.9 x 4.2 x 6.3 cm. Endometrial echo is 0.8 cm thick and centrally placed. No free fluid is seen in the cul-de-sac. Visualized bladder pan are smooth. An IUD is seen in good position centrally in the endometrial canal. The right ovary has dimensions of 3.3 x 2.2 x 2.4 cm. It's Doppler flow is normal with a resistive index of 0.43. The left ovary dimensions are normal as well at 3.7 x 2.2 x 2.7 cm. It's Doppler flow was normal with resistive index of 0.43. IMPRESSION: Normal pelvic sonography. IUD in place. No morphologic abnormality. <Electronically signed by Terrence Cunningham > 08/30/20 0914
== END ==
LOC: M WHC 08:34
PROVIDERS: ATTEND Obstetrics & Gynecology
DX: N93.9 Abnormal uterine and vaginal bleeding, unspecified (principal); Z97.5 Presence of (intrauterine) contraceptive device

== ENCOUNTER 2020-09-02 06:02 | Day surgery (SDC) | payer OTHER ==
[2020-09-02] VITALS (8 sets, daily range): BP systolic 101–118; BP diastolic 49–63
[~2020-09-02] VITALS: Ht 170.2 cm; Wt 79.0 kg
[~2020-09-02 06:02] MED LIST changes: -PERCOCET PO; -PHEN-501 PO
[2020-09-02 06:38] LABS: HEMATOCRIT 43.9 % (36.0-47.0); MEAN CORPUSCULAR HEMOGLOBIN 28.9 pg (27.0-33.0); MEAN CORPUSCULAR HGB CONC 31.9 g/dl (32.0-36.5); MEAN CORPUSCULAR VOLUME 90.7 fl (80.0-96.0); PLATELET COUNT, AUTOMATED 237 10^3/uL (150-450); RED BLOOD COUNT 4.84 10^6/uL (4.00-5.40); WHITE BLOOD COUNT 8.8 10^3/uL (4.0-10.0)
[2020-09-02] MEDS ORDERED: PHEN-501 PO (06:38)
[2020-09-02] MEDS ORDERED: ceFAZolin SOD 2 GM in IV 1 EA IV ONE (07:00)
[2020-09-02] MEDS ORDERED: LR 1,000 ML IV ONE (07:00)
[2020-09-02] MEDS ORDERED: METHYLENE BLUE 0.5% (5MG/ML) 10 ML AMP (PROVAYBLUE) As Ordered ONE (07:14)
[2020-09-02] MEDS ORDERED: BUPIVACAINE HCL 0.25% 30ML VIAL As Ordered ONE (07:14)
[2020-09-02] MEDS ORDERED: fentaNYL 100 MCG/2 ML INJECTION (J3010) As Ordered ONE ×2 (07:16→11:02)
[2020-09-02] MEDS ORDERED: MIDAZOLAM INJ 2MG/2ML VIAL (J2250 PER 1MG) As Ordered ONE (07:16)
[2020-09-02] MEDS ORDERED: HYDROmorphone HCL 2 MG/ML 1ML VIAL (J1170) As Ordered ONE (07:16)
[2020-09-02] MEDS ORDERED: ONDANSETRON 4MG/2ML VIAL As Ordered ONE (07:19)
[2020-09-02] MEDS ORDERED: KETOROLAC 60MG 2ML VIAL As Ordered ONE (07:19)
[2020-09-02] MEDS ORDERED: propofoL 200 MG/20 ML VIAL As Ordered ONE (07:19)
[2020-09-02] MEDS ORDERED: LIDOCAINE 2% 100MG/5ML SDV (FOR ANES.) As Ordered ONE (07:19)
[2020-09-02] MEDS ORDERED: ROCURONIUM BROMIDE 50 MG/5 ML VIAL As Ordered ONE ×2 (07:19→08:22)
[2020-09-02] MEDS ORDERED: dexameTHASONE 4 MG/ML 1ML VIAL (J1100 PER 1MG) As Ordered ONE (07:21)
[2020-09-02 07:25] LABS: FREE T4 1.07 NG/DL (0.76-1.46); THYROID STIMULATING HORMONE 2.73 uIU/ML (0.358-3.740)
[2020-09-02] MEDS ORDERED: SUGAMMADEX SODIUM 500 MG/5 ML VIAL (BRIDION) As Ordered ONE (08:08)
[2020-09-02] MEDS ORDERED: ACETAMINOPHEN 1000MG 100ML IV BTL (OFIRMEV) (J0131 PER 10MG) As Ordered ONE (08:08)
[2020-09-02] MEDS ORDERED: GLYCOPYRROLATE INJ 0.2 MG/ML 2 ML VIAL As Ordered ONE (08:14)
[2020-09-02] MEDS ORDERED: HEPARIN SOD (PORCINE) 5000UNITS/ML 1ML VIAL/SYRINGE As Ordered ONE (09:28)
[2020-09-02] MEDS ORDERED: ISOVUE-300 61% 50ML VIAL As Ordered ONE (09:28)
--- NOTE | 2020-09-02 11:06 | ROOPDOC ---
[facility] Report Of Operation Report of Operation DATE OF PROCEDURE: 09/02/20 PREPROCEDURE DIAGNOSES: Possible retroperitoneal vascular injury after Veress needle placement POSTPROCEDURE DIAGNOSES: Same PROCEDURE: 1. Ultrasound-guided access left common femoral artery 2. Aortoiliofemoral arteriogram with selection views left and right iliac arteries 3. Mynx closure left common femoral artery SURGEON: Edna Carreno MD ANESTHESIA: Gen. anesthesia INDICATION FOR PROCEDURE: We were consulted intraoperative during a robotic case with Dr. Newell for possible arterial injury with varus needle placement. After varus needle, there was noted to be a small retroperitoneal hematoma, and this remained stable during the case. The patient did not require blood transfusion, did not have unstable vitals, and the hematoma did not seem to be expanding during the case. We discussed that it was likely safe to finish the case, and that directly following I would do an arteriogram to see if there was any extravasation or ongoing bleeding. However, I was hopeful that whenever small amount of bleeding occurred attempt noted in the retroperitoneum as the hematoma was small and not expanding. This was an urgent procedure and the patient was under anesthesia, informed consent was not obtained. INTERPRETATION: 1. The distal aorta and proximal iliac segments are widely patent with no extravasation noted. The lumbar arteries at this level were widely patent. No extravasation was noted. There is good flow into both hypogastric arteries with widely patent external iliac arteries and intact proximal runoff through the femoral vessels bilaterally. 2. Selection of the right hypogastric artery did not reveal any arterial injury or extravasation. 3. Selection of the left distal common iliac artery showed widely patent vessels with excellent flow through the hypogastric artery and its branches with no extravasation or sign of arterial injury. REPORT OF OPERATION: Following the robotic case with Dr. Newell, the patient was transferred to a Tiburcio table and her bilateral groins were prepped and draped in a sterile fashion. A timeout was performed. Ultrasound was used to guide access to the left common femoral artery with a microneedle. Wire was passed through this access and the needle was removed. A 4 Greenlandic sheath was placed and flushed with saline. A Glidewire an Omni flushed catheter were advanced into the distal aorta. An aortoiliofemoral arteriogram was performed. Please interpretation above. We then went up and over the bifurcation with a Glidewire and the flushing catheter and selection of the right hypogastric artery was performed with arteriograms, please interpretation above. We then retracted her catheter over the wire into the left iliac system at the origin of the hypogastric additional arteriograms were performed, please interpretation above. No arterial injury or extravasation was noted on arteriograms. We then exchange the sheath over the wire for 5 Greenlandic sheath and a Mynx closure device was deployed with good hemostasis. Pressure was held for 10 minutes and sterile dressings were applied. The patient was then allowed to awaken from anesthesia and taken to recovery in stable condition. She tolerated the procedure well. ESTIMATED BLOOD LOSS: Approximately 2 mL. COMPLICATIONS: none. PLAN: Patient will be on 4 hours bedrest postprocedure with left leg straight. Monitor left groin for hematoma postprocedure. After 4 hours, light activity until morning and then resume normal activity, but no lifting greater than 10 pounds and no strenuous exercise for 48 hours postprocedure. Okay to remove dressing and shower in the morning. Okay to leave access site open to air in the morning. We appreciate the opportunity to participate in the care of this patient. EDNA CARRENO MD Sep 02, 2020 11:06
[2020-09-02] MEDS ORDERED: fentaNYL 100 MCG/2 ML INJECTION (J3010) IV PRN (11:30)
[2020-09-02] MEDS ORDERED: ONDANSETRON 4MG/2ML VIAL IV PRN (11:30)
[2020-09-02] MEDS ORDERED: PERCOCET 5MG/325MG TAB PO PRN (11:30)
[2020-09-02] MEDS ORDERED: LR 1,000 ML IV SCH (11:30)
[2020-09-02] MEDS ORDERED: oxyCODONE 5MG TAB PO PRN (11:30)
[2020-09-02 11:43] LABS: HEMATOCRIT 40.4 % (36.0-47.0); MEAN CORPUSCULAR HEMOGLOBIN 29.2 pg (27.0-33.0); MEAN CORPUSCULAR HGB CONC 32.2 g/dl (32.0-36.5); MEAN CORPUSCULAR VOLUME 90.8 fl (80.0-96.0); PLATELET COUNT, AUTOMATED 215 10^3/uL (150-450); RED BLOOD COUNT 4.45 10^6/uL (4.00-5.40); WHITE BLOOD COUNT 17.8 10^3/uL (4.0-10.0)
[2020-09-02] MEDS: LR 1,000 ML IV SCH ×2 (12:48→22:05)
[2020-09-02] MEDS: MORPHINE 4 MG/ML 1ML VIAL/SYRINGE (J2270) IV PRN ×2 (15:14→22:09)
[2020-09-02] MEDS: PERCOCET 5MG/325MG TAB PO PRN ×2 (16:55→21:04)
[2020-09-02 17:14] LABS: HEMATOCRIT 39.1 % (36.0-47.0); HEMOGLOBIN 12.8 g/dl (12.0-15.5); MEAN CORPUSCULAR HEMOGLOBIN 29.4 pg (27.0-33.0); MEAN CORPUSCULAR HGB CONC 32.7 g/dl (32.0-36.5); MEAN CORPUSCULAR VOLUME 89.9 fl (80.0-96.0); PLATELET COUNT, AUTOMATED 219 10^3/uL (150-450); RED BLOOD COUNT 4.35 10^6/uL (4.00-5.40); WHITE BLOOD COUNT 15.1 10^3/uL (4.0-10.0)
--- NOTE | 2020-09-02 18:04 | ROOPDOC ---
[facility] Report Of Operation Report of Operation DATE OF PROCEDURE: 09/02/20 PREPROCEDURE DIAGNOSES: 1. Abnormal uterine bleeding. POSTPROCEDURE DIAGNOSES: 1. Abnormal uterine bleeding. PROCEDURES PERFORMED: 1. Robotic-assisted laparoscopic hysterectomy. 2. Bilateral salpingectomy. 3. Cystoscopy. SURGEON: Kasey Newell MD STOCK HOUSE WORKER: ZEENAT Thompson ANESTHESIA: General endotracheal anesthesia. ESTIMATED BLOOD LOSS: 50 mL. INTRAVENOUS FLUIDS: 1000mL lactated Ringer solution. URINE OUTPUT: 100mL. PREPROCEDURE ANTIBIOTICS: 2g Ancef OPERATIVE FINDINGS: The patient with normal-appearing bilateral adnexa and uterus. Veress needle puncturing the retroperitoneal. COMPLICATION: Possible retroperitoneal vascular injury with the Veress needle placement. Dr. Naomie Reddy, vascular surgeon was consulted intraoperatively. She performed ultrasound-guided access left common femoral arteryaortoiliofemoral arteriogram with selection views left and right iliac arteries. No arterial injury or extravasation was noted. Please see operative note for further details. CYSTOSCOPIC FINDING: Normal bladder mucosa, no foreign objects. Bilateral ureteral jets were observed. SPECIMEN: Uterus, cervix, bilateral fallopian tubes DESCRIPTION OF PROCEDURE: After informed consent was obtained and written consent was reviewed, the patient was brought to the operating room, where general endotracheal anesthesia was obtained. She was then placed in lithotomy position, was prepped and draped in a normal sterile fashion. A time-out in the operating room was then performed, identifying the patient, procedure to be performed, as well as drug allergies. A speculum was then placed, revealing the cervix. The anterior and posterior aspects of the cervix were stitched with a 0 Vicryl. The uterus was then sounded to 9cm. A large [employer] uterine manipulator was then advanced through the cervical os for means to manipulate the uterus. The cervical cap was applied over the cervix, as well as the vaginal sleeve applied into the vagina. The speculum was removed from the patients vagina. A Wray catheter was then placed and set to gravity. Gloves were changed, and attention was turned to the patients abdomen, where a Veress needle was placed through the umbilicus. A pneumoperitoneum was then obtained with CO2 gas. The supraumbilical area was infused with 0.25% Marcaine. An incision was made in this area, and a 8 mm trocar and sleeve was advanced through this incision. The laparoscope was then replaced, revealing intra-abdominal placement. Three additional port sites were placed, two to the left side of the patient's abdomen and one to the right. These areas was infused with 0.25% Marcaine. Each one of these areas, incisions were made, and 8 mm trocars and sleeves advanced through each one of these incisions under direct visualization. Next, the da Cj was then docked, utilizing a camera arm and two operative arms. The patient's abdomen was then surveyed with the above-noted finding. The Veress needle puncture in the retroperitoneal area was identified at this time. Consult was initiated. Patient remained stable with normal vital signs. No active bleeding identify no enlargement of small hematoma. After co nsultation, Dr. Kearney recommended completion of hysterectomy. She will follow with her procedures after. Bilateral salpingectomies were then performed. The fallopian tubes' mesosalpinx was cauterized and ligated with hemostasis noted. Next, the uteroovarian ligaments bilateral were cauterized and ligated with good hemostasis noted. The round ligaments bilaterally were cauterized and ligated with good hemostasis noted. The anterior and posterior aspects of broad ligaments were . The anterior leaf of the broad ligament was cauterized and ligated and dissected along the bladder, creating a bladder flap. The remainder of the broad and cardinal ligaments were then cauterized and ligated with good hemostasis noted. The uterine arteries were skeletonized bilaterally and were cauterized and transected with good hemostasis noted. Anterior and posterior colpotomies were made using monopolar scissors. The uterus was then brought out through the vaginal incision. The surgical sites were inspected and noted to be hemostatic. The vaginal cuff was then closed using 2-0 V-Loc system in a running fashion. Yaquelin was then applied over the surgical field. The pneumoperitoneum was then released. Next, the cystoscopy was then performed. Utilizing a 70-degree cystoscope, it was advanced transurethrally through the bladder. The bladder was surveyed, showing normal bladder mucosa, no foreign bodies. The bilateral ureteral jets were observed. The cystoscope was then removed. The bladder was then drained. Gloves were changed. Attention was then turned to the patients abdomen, where all four port sites were closed with 4-0 Monocryl and dressed with Dermabond. Dr. Carreno then treated with her procedures. Please see operative note for further details. The completion of her procedure, he shouldn't was awakened from general anest hesia and taken to recovery in stable condition. Counts were correct. Coral Landry, my operating room surgical technologist, played a central role in the operation. She assisted with port placement, tissue retraction and identification, as well as wound closure. KASEY NEWELL MD. Sep 02, 2020 18:04
[2020-09-02 21:13] LABS: HEMATOCRIT 38.8 % (36.0-47.0); HEMOGLOBIN 12.9 g/dl (12.0-15.5); MEAN CORPUSCULAR HEMOGLOBIN 29.9 pg (27.0-33.0); MEAN CORPUSCULAR HGB CONC 33.2 g/dl (32.0-36.5); MEAN CORPUSCULAR VOLUME 89.8 fl (80.0-96.0); PLATELET COUNT, AUTOMATED 220 10^3/uL (150-450); RED BLOOD COUNT 4.32 10^6/uL (4.00-5.40); WHITE BLOOD COUNT 15.3 10^3/uL (4.0-10.0)
[2020-09-03] VITALS (8 sets, daily range): BP systolic 96–121; BP diastolic 50–65
[2020-09-03] MEDS: LR 1,000 ML IV SCH ×2 (05:02→08:28)
[2020-09-03] MEDS: PERCOCET 5MG/325MG TAB PO PRN (05:03)
[2020-09-03] MEDS: MORPHINE 4 MG/ML 1ML VIAL/SYRINGE (J2270) IV PRN (08:33)
[2020-09-03] MEDS ORDERED: ONDANSETRON 4MG/2ML VIAL IV PRN (11:30)
[2020-09-03 11:40] LABS: HEMATOCRIT 35.2 % (36.0-47.0); HEMOGLOBIN 11.1 g/dl (12.0-15.5); MEAN CORPUSCULAR HEMOGLOBIN 28.9 pg (27.0-33.0); MEAN CORPUSCULAR HGB CONC 31.5 g/dl (32.0-36.5); MEAN CORPUSCULAR VOLUME 91.7 fl (80.0-96.0); PLATELET COUNT, AUTOMATED 202 10^3/uL (150-450); RED BLOOD COUNT 3.84 10^6/uL (4.00-5.40); WHITE BLOOD COUNT 11.2 10^3/uL (4.0-10.0)
[2020-09-03] MEDS ORDERED: KETOROLAC 30 MG/ML 1ML VIAL IV SCH (12:00)
[2020-09-03] MEDS ORDERED: PERCOCET PO (15:02)
== END 2020-09-03 15:47 | disposition home or self-care (01) ==
LOC: M SDC 06:02 → M MSPAV 12:21 → M SDC 09-03 15:47
PROVIDERS: ATTEND Obstetrics & Gynecology
DX: N92.4 Excessive bleeding in the premenopausal period (principal); N94.6 Dysmenorrhea, unspecified; N72 Inflammatory disease of cervix uteri; G40.909 Epilepsy, unspecified, not intractable, without status epilepticus; J45.909 Unspecified asthma, uncomplicated; Q61.5 Medullary cystic kidney; F17.218 Nicotine dependence, cigarettes, with other nicotine-induced disorders; Z79.899 Other long term (current) drug therapy
CPT/HCPCS: 36200; 36415; 58571; 75630; 75774; 76000; 81025; 82947; 84439; 84443; 85027; 86850; 86900; 86901; 86920; 88307; 96361; 96374; 96375; 96376; C1760; C1769; C1887; C1894; G0269; J0131; J0690; J1100; J1170; J1644; J1885; J2250; J2270; J2405; J3010; Q9967; Q9968; S2900

== ENCOUNTER 2020-09-23 14:25 | Emergency (ER) | payer OTHER ==
[~2020-09-23] VITALS: Ht 180.3 cm; Wt 78.6 kg
[~2020-09-23 14:25] MED LIST changes: +PERCOCET PO; +PHEN-501 PO
[2020-09-23] MEDS ORDERED: LASI20TA3 PO (14:45)
--- NOTE | 2020-09-23 16:03 | REP ---
INDICATION: CHEST PAIN COMPARISON: 07/09/2018 TECHNIQUE: PA and lateral. FINDINGS: The mediastinum and cardiac silhouette are normal. The lung vivar are clear and without acute consolidation, effusion, or pneumothorax. The skeletal structures are intact and normal. IMPRESSION: No acute cardiopulmonary process. <Electronically signed by Vernon Hays > 09/23/20 1600
[2020-09-23 16:34] LABS: BASO % 0.4 % (0.0-1.0); EOS # 0.4 10^3/uL (0.0-0.5); EOS % 3.9 % (0.0-3.0); HEMATOCRIT 41.3 % (36.0-47.0); HEMOGLOBIN 13.3 g/dl (12.0-15.5); LYMPH # 2.6 10^3/uL (1.5-5.0); LYMPH % 26.5 % (24.0-44.0); MEAN CORPUSCULAR HEMOGLOBIN 28.9 pg (27.0-33.0); MEAN CORPUSCULAR HGB CONC 32.2 g/dl (32.0-36.5); MEAN CORPUSCULAR VOLUME 89.8 fl (80.0-96.0); MONO # 0.8 10^3/uL (0.0-0.8); MONO % 7.6 % (0.0-5.0); NEUTROPHILS # 6.1 10^3/uL (1.5-8.5); NEUTROPHILS % 61.2 % (36.0-66.0); PLATELET COUNT, AUTOMATED 300 10^3/uL (150-450); WHITE BLOOD COUNT 9.9 10^3/uL (4.0-10.0)
[2020-09-23 17:01] LABS: BLOOD UREA NITROGEN 10 MG/DL (7-18); CALCIUM LEVEL 8.9 MG/DL (8.5-10.1); CARBON DIOXIDE LEVEL 30 MEQ/L (21-32); CHLORIDE LEVEL 104 MEQ/L (98-107); CPK CREATINE PHOSPHOKINASE 103 U/L (26-192); CREATININE FOR GFR 0.89 MG/DL (0.55-1.30); GLOMERULAR FILTRATION RATE > 60.0 (>60); GLUCOSE, FASTING 97 MG/DL (70-100); MB/CK RELATIVE INDEX 0.97 (< OR =4); NT-PRO BNP 40 PG/ML (<125); SODIUM LEVEL 139 MEQ/L (136-145); TROPONIN I < 0.02 NG/ML (< 0.10)
[2020-09-23 18:10] VITALS: BP 109/68
--- NOTE | 2020-09-23 19:23 | ECGEPIP ---
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
== END 2020-09-23 18:19 | disposition home or self-care (01) ==
LOC: M ED 14:25
DX: R60.9 Edema, unspecified (principal); I42.9 Cardiomyopathy, unspecified; R07.9 Chest pain, unspecified

== ENCOUNTER → 2020-09-29 | Outpatient (CLI) | payer OTHER ==
[~2020-09-29] MED LIST changes: +LASI20TA3 PO
== END ==
LOC: M PLALAB 11:55
PROVIDERS: ATTEND Internal Medicine Cardiovascular Disease
DX: R07.89 Other chest pain (principal)

== ENCOUNTER → 2022-05-17 | Outpatient (REF) | payer OTHER ==
[~2022-05-17] MED LIST changes: -AMLO2.5C4 PO; +AMLO2.5C6 PO
== END ==
LOC: M SFHCWAGY 12:59
PROVIDERS: ATTEND Advanced Practice Midwife
DX: N94.10 Unspecified dyspareunia (principal)

== ENCOUNTER 2022-10-26 06:58 | Emergency (ER) | payer OTHER ==
[~2022-10-26] VITALS: Ht 170.2 cm; Wt 81.5 kg
[2022-10-26] MEDS ORDERED: ACET-841 PO (07:05)
[2022-10-26] MEDS ORDERED: MORPHINE 2 MG/ML 1ML VIAL IV ONE (12:00)
[2022-10-26] MEDS ORDERED: ONDANSETRON 4MG 2ML VIAL IV ONE (12:00)
[2022-10-26] MEDS ORDERED: NS 1,000 ML IV ONE (12:00)
[2022-10-26 12:38] LABS: BASO % 0.2 % (0.0-1.0); EOS # 0.1 10^3/uL (0.0-0.5); EOS % 0.5 % (0.0-3.0); HEMATOCRIT 44.6 % (36.0-47.0); LYMPH # 1.8 10^3/uL (1.5-5.0); LYMPH % 19.1 % (24.0-44.0); MEAN CORPUSCULAR HEMOGLOBIN 29.6 pg (27.0-33.0); MEAN CORPUSCULAR HGB CONC 33.6 g/dl (32.0-36.5); MONO # 0.5 10^3/uL (0.0-0.8); MONO % 5.2 % (2.0-8.0); NEUTROPHILS # 6.9 10^3/uL (1.5-8.5); NEUTROPHILS % 74.7 % (36.0-66.0); PLATELET COUNT, AUTOMATED 207 10^3/uL (150-450); RED BLOOD COUNT 5.07 10^6/uL (4.00-5.40); WHITE BLOOD COUNT 9.3 10^3/uL (4.0-10.0)
[2022-10-26 13:02] LABS: LIPASE 44 U/L (12-53)
[2022-10-26 13:05] LABS: ALBUMIN 4.3 G/DL (3.2-5.2); ALKALINE PHOSPHATASE 60 U/L (46-116); ALT/SGPT 95 U/L (7.0-40); AST/SGOT 26 U/L (<34); BILIRUBIN,DIRECT 0.3 MG/DL (<0.4); BILIRUBIN,TOTAL 0.9 MG/DL (0.3-1.2); C REACTIVE PROTEIN QUANTITATIV < 0.40 MG/DL (<1.0); TOTAL PROTEIN 7.1 G/DL (5.7-8.2)
[2022-10-26 13:25] VITALS: BP 104/62
[2022-10-26 13:26] LABS: ERYTHROCYTE SEDIMENTATION RATE 17 mm/hr (0-20)
[2022-10-26] MEDS ORDERED: ONDA4TAB6 PO (15:06)
[2022-10-26] MEDS ORDERED: CEPH500C PO (15:07)
[2022-10-26] MEDS ORDERED: FLOM0.4C39 PO (15:07)
[2022-10-26] MEDS ORDERED: PYRI1TAB5 PO (15:08)
[2022-10-26] MEDS ORDERED: PHENAZOPYRIDINE 100 MG TAB PO ONE (15:20)
[2022-10-26] MEDS ORDERED: TAMSULOSIN 0.4 MG CAP PO ONE (15:20)
[2022-10-26] MEDS ORDERED: CEPHALEXIN 500 MG CAP PO ONE (15:20)
== END 2022-10-26 15:42 | disposition home or self-care (01) ==
LOC: M ED 06:58
DX: N83.202 Unspecified ovarian cyst, left side (principal); N20.0 Calculus of kidney; N39.0 Urinary tract infection, site not specified; M46.1 Sacroiliitis, not elsewhere classified; K52.9 Noninfective gastroenteritis and colitis, unspecified; G43.909 Migraine, unspecified, not intractable, without status migrainosus; F41.9 Anxiety disorder, unspecified; F17.200 Nicotine dependence, unspecified, uncomplicated; Z79.899 Other long term (current) drug therapy; Z79.891 Long term (current) use of opiate analgesic
CPT/HCPCS: 74176; 76856; 80047; 80076; 81000; 81015; 83605; 83690; 85025; 85652; 86140; 87040; 87086; 93976; 96361; 96374; 96375; 99283; J2270; J2405

== ENCOUNTER 2023-03-15 17:46 | Emergency (ER) | payer OTHER ==
[~2023-03-15] VITALS: Ht 170.2 cm; Wt 78.7 kg
[~2023-03-15 17:46] MED LIST changes: +ACET-841 PO; +CEPH500C PO; +FLOM0.4C39 PO; +ONDA4TAB6 PO; +PYRI1TAB5 PO
[2023-03-15] MEDS ORDERED: ONDANSETRON 4MG 2ML VIAL IV ONE (19:05)
[2023-03-15] MEDS ORDERED: MORPHINE 4 MG/ML 1ML VIAL IV ONE (19:05)
[2023-03-15 19:10] LABS: BASO % 0.2 % (0.0-1.0); EOS # 0.3 10^3/uL (0.0-0.5); EOS % 2.9 % (0.0-3.0); HEMATOCRIT 45.2 % (36.0-47.0); LYMPH # 2.5 10^3/uL (1.5-5.0); LYMPH % 24.1 % (24.0-44.0); MEAN CORPUSCULAR HEMOGLOBIN 29.2 pg (27.0-33.0); MEAN CORPUSCULAR HGB CONC 33.2 g/dl (32.0-36.5); MEAN CORPUSCULAR VOLUME 87.9 fl (80.0-96.0); MONO # 0.8 10^3/uL (0.0-0.8); MONO % 7.6 % (2.0-8.0); NEUTROPHILS # 6.7 10^3/uL (1.5-8.5); PLATELET COUNT, AUTOMATED 285 10^3/uL (150-450); RED BLOOD COUNT 5.14 10^6/uL (4.00-5.40); WHITE BLOOD COUNT 10.3 10^3/uL (4.0-10.0)
[2023-03-15 19:33] LABS: BILIRUBIN,DIRECT 0.2 MG/DL (<0.4); BILIRUBIN,TOTAL 0.5 MG/DL (0.3-1.2); TOTAL PROTEIN 6.7 G/DL (5.7-8.2)
[2023-03-15] MEDS ORDERED: ISOVUE-370 76% 100ML VIAL As Ordered ONE (19:41)
[2023-03-15] MEDS ORDERED: cefTRIAXone SOD 1 GM in D5W MINI-BAG PLUS 50 ML IV ONE (21:25)
[2023-03-15] MEDS ORDERED: CEPH500C PO (21:29)
[2023-03-15 21:58] VITALS: BP 106/67
== END 2023-03-15 22:23 | disposition home or self-care (01) ==
LOC: M ED 17:46
DX: N39.0 Urinary tract infection, site not specified (principal); N83.291 Other ovarian cyst, right side; Z79.83 Long term (current) use of bisphosphonates; Z79.899 Other long term (current) drug therapy
CPT/HCPCS: 74177; 80047; 80076; 81001; 83690; 84702; 85025; 87088; 87186; 96365; 96375; 99284; J0696; J2405; Q9967

== ENCOUNTER → 2023-05-06 | Outpatient (REF) | payer OTHER ==
[2023-05-06 17:58] LABS: APPEARANCE, URINE HAZY (CLEAR); BACTERIA, URINE AUTO NEGATIVE (NEGATIVE); BILIRUBIN, URINE AUTO NEGATIVE (NEGATIVE); BLOOD, URINE BLOOD NEGATIVE (NEGATIVE); COLOR, URINE AMBER (YELLOW); GLUCOSE, URINE (UA) AUTO NEGATIVE (NEGATIVE); KETONE, URINE AUTO NEGATIVE (NEGATIVE); LEUKOCYTE ESTERASE, URINE AUTO NEGATIVE (NEGATIVE); MUCUS, URINE SMALL (NEGATIVE); NITRITE, URINE AUTO NEGATIVE (NEGATIVE); PROTEIN, URINE AUTO NEGATIVE (NEGATIVE); RBC, URINE AUTO 1 /HPF (0-3); SPECIFIC GRAVITY URINE AUTO 1.025 (1.002-1.035); SQUAMOUS EPITHELIAL CELL UR AU 1 /HPF (0-6); WBC, URINE AUTO 3 /HPF (0-3)
== END ==
LOC: M SMT 16:58
PROVIDERS: ATTEND Physician Assistant
DX: R10.9 Unspecified abdominal pain (principal)

== ENCOUNTER 2023-05-07 21:11 | Emergency (ER) | payer OTHER ==
[~2023-05-07] VITALS: Ht 170.2 cm; Wt 77.3 kg
[2023-05-07 21:11] VITALS: BP 114/70; TEMP 97.6; O2SAT 62
[2023-05-07 22:44] LABS: BASO % 0.3 % (0.0-1.0); EOS # 0.2 10^3/uL (0.0-0.5); EOS % 1.2 % (0.0-3.0); HEMATOCRIT 42.2 % (36.0-47.0); HEMOGLOBIN 13.7 g/dl (12.0-15.5); LYMPH % 14.6 % (24.0-44.0); MEAN CORPUSCULAR HEMOGLOBIN 29.6 pg (27.0-33.0); MEAN CORPUSCULAR HGB CONC 32.5 g/dl (32.0-36.5); MEAN CORPUSCULAR VOLUME 91.1 fl (80.0-96.0); MONO # 0.7 10^3/uL (0.0-0.8); MONO % 5.4 % (2.0-8.0); NEUTROPHILS # 10.8 10^3/uL (1.5-8.5); NEUTROPHILS % 78.1 % (36.0-66.0); PLATELET COUNT, AUTOMATED 295 10^3/uL (150-450); RED BLOOD COUNT 4.63 10^6/uL (4.00-5.40); WHITE BLOOD COUNT 13.8 10^3/uL (4.0-10.0)
[2023-05-07 23:11] LABS: LIPASE 40 U/L (12-53)
[2023-05-07 23:13] LABS: HCG, SERUM QUALITATIVE NEGATIVE (NEGATIVE)
[2023-05-07 23:15] LABS: ALBUMIN 4.2 G/DL (3.2-5.2); ALKALINE PHOSPHATASE 58 U/L (46-116); ALT/SGPT 17 U/L (7.0-40); AST/SGOT 8 U/L (<34); BILIRUBIN,DIRECT < 0.1 MG/DL (<0.4); BILIRUBIN,TOTAL 0.2 MG/DL (0.3-1.2); BLOOD UREA NITROGEN 11 MG/DL (9-23); CALCIUM LEVEL 9.8 MG/DL (8.5-10.1); CARBON DIOXIDE LEVEL 27 MMOL/L (20-31); CHLORIDE LEVEL 107 MMOL/L (98-107); CREATININE FOR GFR 0.89 MG/DL (0.55-1.30); GLOMERULAR FILTRATION RATE > 60.0 (>60); GLUCOSE, FASTING 95 MG/DL (60-100); POTASSIUM SERUM 3.7 MMOL/L (3.5-5.1); SODIUM LEVEL 141 MMOL/L (136-145); TOTAL PROTEIN 6.5 G/DL (5.7-8.2)
== END 2023-05-08 01:26 | disposition left against medical advice (07) ==
LOC: M ED 21:11
DX: Z53.21 Procedure and treatment not carried out due to patient leaving prior to being seen by health care provider (principal)

== ENCOUNTER → 2024-02-26 | Outpatient (CLI) | payer OTHER ==
[2024-02-26 17:45] LABS: HEMOGLOBIN 14.5 g/dl (12.0-15.5); MEAN CORPUSCULAR HEMOGLOBIN 29.4 pg (27.0-33.0); MEAN CORPUSCULAR VOLUME 89.2 fl (80.0-96.0); PLATELET COUNT, AUTOMATED 294 10^3/uL (150-450); RED BLOOD COUNT 4.93 10^6/uL (4.00-5.40); WHITE BLOOD COUNT 7.9 10^3/uL (4.0-10.0)
[2024-02-26 17:47] LABS: APPEARANCE, URINE CLEAR (CLEAR); BACTERIA, URINE AUTO 2+ (NEGATIVE); BILIRUBIN, URINE AUTO NEGATIVE (NEGATIVE); BLOOD, URINE BLOOD NEGATIVE (NEGATIVE); COLOR, URINE YELLOW (YELLOW); GLUCOSE, URINE (UA) AUTO NEGATIVE (NEGATIVE); KETONE, URINE AUTO NEGATIVE (NEGATIVE); LEUKOCYTE ESTERASE, URINE AUTO NEGATIVE (NEGATIVE); NITRITE, URINE AUTO POSITIVE (NEGATIVE); PROTEIN, URINE AUTO NEGATIVE (NEGATIVE); RBC, URINE AUTO 2 /HPF (0-3); SPECIFIC GRAVITY URINE AUTO 1.018 (1.002-1.035); SQUAMOUS EPITHELIAL CELL UR AU 1 /HPF (0-6); UROBILINOGEN, URINE AUTO 0.2 mg/dL (0.0-2.0); WBC, URINE AUTO 5 /HPF (0-3)
[2024-02-26 18:12] LABS: ALBUMIN 4.6 G/DL (3.2-5.2); ALKALINE PHOSPHATASE 57 U/L (46-116); ALT/SGPT 19 U/L (7.0-40); AST/SGOT < 8 U/L (<34); BILIRUBIN,DIRECT 0.2 MG/DL (<0.4); BILIRUBIN,TOTAL 0.4 MG/DL (0.3-1.2); BLOOD UREA NITROGEN 14 MG/DL (9-23); CALCIUM LEVEL 9.6 MG/DL (8.5-10.1); CARBON DIOXIDE LEVEL 30 MMOL/L (20-31); CHLORIDE LEVEL 103 MMOL/L (98-107); CREATININE FOR GFR 0.87 MG/DL (0.55-1.30); GLOMERULAR FILTRATION RATE > 60.0 (>60); GLUCOSE, FASTING 90 MG/DL (60-100); POTASSIUM SERUM 4.5 MMOL/L (3.5-5.1); SODIUM LEVEL 140 MMOL/L (136-145); TOTAL PROTEIN 7.3 G/DL (5.7-8.2)
[2024-02-26 18:13] LABS: FREE T4 1.37 NG/DL (0.89-1.76); THYROID STIMULATING HORMONE 2.422 uIU/ML (0.55-4.78)
== END ==
LOC: M PLALAB 16:33
PROVIDERS: ATTEND Obstetrics & Gynecology
DX: R53.83 Other fatigue (principal)